=== PATIENT | male | born 1995 | race Caucasian/White ===

== ENCOUNTER 2019-04-09 12:42 | Emergency (ER) | payer BC ==
[~2019-04-09] VITALS: Ht 170.2 cm; Wt 61.7 kg
[2019-04-09 13:29] VITALS: BP 122/72; Ht 170.2 cm; Wt 61.7 kg
== END 2019-04-09 15:23 | disposition home or self-care (01) ==
LOC: ED 12:42
DX: R50.9 Fever, unspecified (principal); R51 Headache; M79.10 Myalgia, unspecified site; R53.1 Weakness
CPT/HCPCS: 87804